=== PATIENT | female | born 1985 | race Caucasian/White ===

== ENCOUNTER 2020-04-30 09:20 | Emergency (ER) | payer BC ==
[~2020-04-30] VITALS: Ht 149.8 cm; Wt 79.4 kg
[~2020-04-30 09:20] MED LIST: ACHD5005 PO; LVT.088T PO
--- NOTE | 2020-04-30 10:40 | ED Lower Extremity ---
General Chief Complaint: Lower Extremity Stated Complaint: HURT BOTH ANKLES Nursing Triage Note: PT TO RM 5 BY WHEELCHAIR WITH COMPLAINT OF BILATERAL ANKLE/FOOT PAIN. PT STATES SHE FELL DOWN HER STAIRS AROUND 10PM LAST NIGHT. DENIES OTHER INJURY. STATES SHE HAS BEEN UNABLE TO BEAR WEIGHT. Nursing Sepsis Screen: No Definite Risk (ADAIR ANTUNEZ STUDENT) History of Present Illness Date Seen by Provider: Apr 30, 2020 Time Seen by Provider: 10:20 Initial Comments Pt states she fell down some steps yesterday and not sure why she fell. Pt states it just hurts and is a 7/10 pain on R and 6/10 on L. Pt states R lateral ankle is swollen and L lateral foot is bruised and swollen. Sensation intact. b rodney with not moving. worse with walking. tried tylenol and ice, staying off foot and wrapped. a/w knee twinge. Pt states she's sprained ankle before. Onset: yesterday (last night) Pain/Injury Location: bilateral foot, bilateral ankle Method of Injury: fell (stairs) (ADAIR ANTUNEZ STUDENT) Allergies and Home Medications Allergies Coded Allergies: No Known Drug Allergies (Unverified , 06/04/13) Home Medications Hydrocodone Bit/Acetaminophen 1 Each Tablet, 1-2 EACH PO Q4H PRN for PAIN Prescribed by: NATALIA BOWMAN on 06/05/13 0329 Hydrocodone/Acetaminophen 1 Each Tablet, 1 EACH PO Q4H PRN for PAIN-MODERATE (5- 7) Prescribed by: CONSTANTINO GOLDSTEIN on 04/30/20 1132 Levothyroxine Sodium 88 Mcg Tablet, 1 EACH PO DAILY, (Reported) Patient Home Medication List Home Medication List Reviewed: Yes (ADIAR ANTUNEZ MED STUDENT) Review of Systems Constitutional: No chills, No diaphoresis EENTM: No hearing loss, No ear pain, No blurred vision, No double vision, No vision loss Respiratory: No cough, No dyspnea on exertion Cardiovascular: No chest pain Gastrointestinal: No abdominal pain Control/STD Prophylaxis: BC Pills Musculoskeletal: joint pain (ankle and foot), joint swelling (ankle) Skin: change in color (bruise on lateral L foot); No lesions; lumps (ADAIR ANTUNEZ STUDENT) Past Ttpfsye-Iyjhze-Ghaohr Hx Patient Social History Alcohol Use: Occasionally Uses Recreational Drug Use: No Smoking Status: Never a Smoker Recent Foreign Travel: No Contact w/Someone Who Travel: No Recent Infectious Disease Expo: No (ADAIR ANTUNEZ [employer] STUDENT) Immunizations Up To Date Tetanus Booster (TDap): Unknown (ADAIR ANTUNEZ) Past Medical History Surgeries: Yes Appendectomy Respiratory: Yes Asthma Cardiac: No Neurological: No Reproductive Disorders: No Gastrointestinal: No Musculoskeletal: Yes Fibromyalgia Endocrine: Yes Hypothyroidsim Cancer: No Psychosocial: No Integumentary: No (ADAIR ANTUNEZ [employer] STUDENT) Physical Exam Vital Signs Vital Signs - First Documented 04/30/20 09:24 Pulse 93 Resp 20 B/P (MAP) 153/98 (116) Pulse Ox 96 O2 Delivery Room Air (CONSTANTINO GOLDSTEIN APRN) Vital Signs Capillary Refill : Less Than 3 Seconds (ADAIR ANTUNEZ [employer] STUDENT) Height, Weight, BMI Height: 4'11.00" Weight: 130lbs. 0.0oz. 58.849351ge; 35.00 BMI Method:Stated General Appearance: WD/WN, no apparent distress HEENT: PERRL/EOMI Neck: supple Cardiovascular: regular rate, rhythm Respiratory: lungs clear, normal breath sounds, no respiratory distress, no ac cessory muscle use Gastrointestinal: non tender Ankles: right ankle swelling Feet: left foot ecchymosis Neurologic/Tendon: normal sensation, normal motor functions Neurologic/Psychiatric: alert, normal mood/affect, oriented x 3 Skin: ecchymosis (ADAIR ANTUNEZ [employer] STUDENT) Progress/Results/Core Measures Results/Orders My Orders Orders - CONSTANTINO GOLDSTEIN APRN Ankle, Bilateral, 3 Views (04/30/20 10:50) Foot, Bilateral, 3 View (04/30/20 10:50) (CONSTANTINO GOLDSTEIN APRN) Vital Signs/I&O 04/30/20 09:24 Pulse 93 Resp 20 B/P (MAP) 153/98 (116) Pulse Ox 96 O2 Delivery Room Air (CONSTANTINO GOLDSTEIN APRN) Blood Pressure Mean: 116 Progress Progress Note : Progress Note ankle sprain bilat - brace, rest, ice, compression,elevation for 72 hrs (ANTUNEZ,ADAIR X MED STUDENT) Diagnostic Imaging Diagonstic Imaging: Xray Comments NAME: KATIE LAW [facility] REC#: [id number] PT STATUS: REG ER : 1985 PHYSICIAN: CONSTANTINO GOLDSTEIN APRN ADMIT DATE: 04/30/20/ER Draft Date of Exam:04/30/20 ANKLE, BILATERAL, 3 VIEWS HISTORY: Fall, bilateral ankle pain, right greater than left. Bruising and swelling. COMPARISON: None. TECHNIQUE: Three views of the bilateral ankles. FINDINGS: Right ankle: There is a minimally posteriorly displaced oblique Melissa type B fracture of the lateral malleolus, best seen on the lateral view. No definite fracture is seen in the medial malleolus or the posterior malleolus. There is soft tissue swelling about the right ankle, particularly laterally. The ankle mortise is symmetric and the talar dome appears intact. No significant joint effusion is seen. Left ankle: No acute fracture or dislocation is seen in the left ankle. Alignment appears normal. The ankle mortise is symmetric and the talar dome is intact. A mildly displaced fracture is noted at the base of the fifth metatarsal. IMPRESSION: 1. Minimally displaced fracture of the right ankle lateral malleolus. 2. No fracture is seen in the left ankle. 3. Mildly displaced fracture at the base of the left fifth metatarsal. Dictated on workstation # [id number] Dict: 04/30/20 1123 Trans: 04/30/20 1129 [id number] Interpreted by: AUGUSTUS MORTON MD Electronically signed by: NAME: KATIE LAW [facility] REC#: [id number] PT STATUS: REG ER : 1985 PHYSICIAN: CONSTANTINO GOLDSTEIN APRN ADMIT DATE: 04/30/20/ER Draft Date of Exam:04/30/20 FOOT, BILATERAL, 3 VIEW INDICATION: Fall with bilateral foot and ankle pain. TIME OF EXAM: 11:12 AM. TECHNIQUE: Multiple views of the bilateral feet were obtained. FINDINGS: The left foot does show an acute fracture at the base of the 5th metatarsal. The remaining metatarsals are intact. The phalanges are intact. The midfoot and hindfoot are unremarkable on the left apart from a small plantar calcaneal spur. The right foot does demonstrate a bunion deformity. The metatarsals and phalanges appear intact. The midfoot and hindfoot are unremarkable. IMPRESSION: Acute fracture at the base of the 5th metatarsal on the left. No other fractures are detected. Dictated on workstation # [id number] Dict: 04/30/20 1122 Trans: 04/30/20 1126 [id number] Interpreted by: SINGH VANCE MD Electronically signed by: (CONSTANTINO GOLDSTEIN APRN) Departure Communication (Admissions) Naomi seen the patient as well. She fell down the stairs last night she has significant swelling over the right lateral malleolus with inability to bear weight and some swelling over the proximal aspect of the fourth and fifth metatarsals on the left. Will obtain x-rays. She has a strong dorsalis pedis pulse on both feet. She is able to bear weight on the left foot. She cannot bear weight on the right foot because of pain. 1149-she has a fracture of the right distal fibula and the left proximal fifth metatarsal. She was given bilateral walking boots and a knee scooter. I would plan to let her bear weight on the right foot and nonweightbearing on the left foot. She will be sent home with crutches and a prescription for a knee scooter to use for the left foot. (CONSTANTINO GOLDSTEIN APRN) Impression Primary Impression: Foot fracture, left Additional Impression: Ankle fracture, right Disposition: 01 HOME, SELF-CARE Condition: Stable Departure-Patient Inst. Decision time for Depature: 11:27 (CONSTANTINO GOLDSTEIN APRN) Referrals: NO,LOCAL PHYSICIAN (PCP) Primary Care Physician ACLE CASTILLO MD, MICHAEL P MD Patient Instructions: Foot Fracture ED, Ankle Fracture Add. Discharge Instructions: 1. Keep both feet elevated as much as possible. Keep an ice pack on these. When you are up and about keep the boot on the left foot when walking and the stirrup splint on the right ankle when walking. Try not to bear weight on the left foot. Call orthopedics today to make an appointment to be seen this week. All discharge instructions reviewed with patient and/or family. Voiced understanding. Scripts Hydrocodone/Acetaminophen (Hydrocodone-Acetamin 5-325 mg) 1 Each Tablet 1 EACH PO Q4H PRN for PAIN-MODERATE (5-7), #30 TAB . Prov: CONSTANTINO GOLDSTEIN [employer] 04/30/20 [wheelchair] No Conflict Check EA XX, #1 Prov: CONSTANTINO GOLDSTEIN [employer] 04/30/20 [knee scooter] No Conflict Check EA XX, #1 Prov: CONSTANTINO GOLDSTEIN [employer] LE[employer] 04/30/20 Work/School Note: Work Release Form Date Seen in the Emergency Department: Apr 30, 2020 Return to Work: May 07, 2020 Restrictions: No Restrictions ADAIR ANTUNEZ MED STUDENT Apr 30, 2020 10:40 CONSTANTINO GOLDSTEIN [employer] LE[employer] Apr 30, 2020 11:02
--- NOTE | 2020-04-30 11:26 | Diagnostic Imaging Report ---
INDICATION: Fall with bilateral foot and ankle pain. TIME OF EXAM: 11:12 AM. TECHNIQUE: Multiple views of the bilateral feet were obtained. FINDINGS: The left foot does show an acute fracture at the base of the 5th metatarsal. The remaining metatarsals are intact. The phalanges are intact. The midfoot and hindfoot are unremarkable on the left apart from a small plantar calcaneal spur. The right foot does demonstrate a bunion deformity. The metatarsals and phalanges appear intact. The midfoot and hindfoot are unremarkable. IMPRESSION: Acute fracture at the base of the 5th metatarsal on the left. No other fractures are detected. Dictated by: Dictated on workstation # [id number]
--- NOTE | 2020-04-30 11:30 | Diagnostic Imaging Report ---
HISTORY: Fall, bilateral ankle pain, right greater than left. Bruising and swelling. COMPARISON: None. TECHNIQUE: Three views of the bilateral ankles. FINDINGS: Right ankle: There is a minimally posteriorly displaced oblique Melissa type B fracture of the lateral malleolus, best seen on the lateral view. No definite fracture is seen in the medial malleolus or the posterior malleolus. There is soft tissue swelling about the right ankle, particularly laterally. The ankle mortise is symmetric and the talar dome appears intact. No significant joint effusion is seen. Left ankle: No acute fracture or dislocation is seen in the left ankle. Alignment appears normal. The ankle mortise is symmetric and the talar dome is intact. A mildly displaced fracture is noted at the base of the fifth metatarsal. IMPRESSION: 1. Minimally displaced fracture of the right ankle lateral malleolus. 2. No fracture is seen in the left ankle. 3. Mildly displaced fracture at the base of the left fifth metatarsal. Dictated by: Dictated on workstation # [id number]
[2020-04-30] MEDS ORDERED: ACHD5005 PO ×2 (11:31→11:50)
[2020-04-30] MEDS ORDERED: knee scooter XX (11:38)
[2020-04-30] MEDS ORDERED: wheelchair XX (11:43)
[2020-04-30 12:10] VITALS: BP 125/82
== END 2020-04-30 12:10 | disposition home or self-care (01) ==
LOC: EDUNIT# 09:20 → ER 09:23
DX: S92.352A Displaced fracture of fifth metatarsal bone, left foot, initial encounter for closed fracture (principal); S82.61XA Displaced fracture of lateral malleolus of right fibula, initial encounter for closed fracture; E03.9 Hypothyroidism, unspecified; Z79.890 Hormone replacement therapy; W10.8XXA Fall (on) (from) other stairs and steps, initial encounter
CPT/HCPCS: 28475

== ENCOUNTER → 2023-03-25 | Outpatient (CLI) | payer BC ==
[~2023-03-25] MED LIST changes: +knee scooter XX; +wheelchair XX
--- NOTE | 2023-03-25 14:45 | Diagnostic Imaging Report ---
INDICATION: Routine screening. COMPARISON: No prior mammograms are available for comparison. This is a baseline study. TECHNIQUE: 2D and 3D bilateral screening mammography was performed with CAD. FINDINGS: Both breasts are heterogeneously dense, limiting the sensitivity of mammography. No mass or malignant-appearing microcalcifications are identified. The axillae are unremarkable. IMPRESSION: No mammographic features suspicious for malignancy are identified. ACR BI-RADS Category 1: Negative. Result letter will be mailed to the patient. Note: At least 10% of breast cancer is not imaged by mammography. Dictated by: Dictated on workstation # [id number]
== END ==
LOC: RAD 11:15
PROVIDERS: ATTEND Family Medicine
DX: Z12.31 Encounter for screening mammogram for malignant neoplasm of breast (principal)
CPT/HCPCS: 77063; 77067